=== PATIENT | female | born 1980 | race African-American/Black ===

== ENCOUNTER 2017-08-13 08:04 | Day surgery (SDC) | payer OTHER ==
[2017-08-10 10:43] VITALS: BMI 47.5
[2017-08-13 08:33] LABS: BASOPHIL 0.6 % (0-2.0); EOSINOPHIL 1.6 % (0-4.5); MCH 23.7 pg (25.7-33.7); MCHC 32.9 g/dl (32.0-36.0); MEAN CELL VOLUME 72.3 fl (80-96); MEAN PLT VOLUME 8.4 fl (7.5-11.1); NEUTROPHILS 58.4 % (42.8-82.8); PLATELET COUNT 313 K/MM3 (134-434); RDW 16.4 % (11.6-15.6); WHITE BLOOD COUNT 6.5 K/mm3 (4.0-10.0)
[2017-08-13 08:55] LABS: INR 1.12 (0.82-1.09); PROTHROMBIN TIME (PATIENT) 12.6 SEC (9.98-11.88)
[2017-08-13 09:15] LABS: ALBUMIN 3.3 g/dl (3.4-5.0); ALK PHOS 75 U/L (45-117); ANION GAP 6 (8-16); BILIRUBIN,TOTAL 0.3 mg/dL (0.2-1.0); CALCIUM 8.4 mg/dL (8.5-10.1); CO2 27 mmol/L (21-32); CREATININE 0.7 mg/dL (0.55-1.02); GLUCOSE,RANDOM 89 mg/dL (74-106); SGOT/AST 12 U/L (15-37); SGPT/ALT 15 U/L (12-78); TOT PROT 7.3 g/dl (6.4-8.2)
[2017-08-13] MEDS ORDERED: KETOROLAC TROMETHAMINE 15 MG/ML VIAL IVPUSH ONE ×2 (11:55→12:20)
[2017-08-13] MEDS ORDERED: HYDROmorphone HCL CARPU-JECT 1 MG/1 ML DISP.SYRIN IVPUSH ONE ×2 (12:20→12:40)
[2017-08-13] MEDS ORDERED: HYDROmorphone HCL CARPU-JECT 2 MG/1 ML DISP.SYRIN ONE (13:12)
[2017-08-13] MEDS ORDERED: HYDROmorphone *PCA* 10MG/50ML DISP.SYRIN PCA ONE ×2 (13:12→13:20)
[2017-08-13] MEDS ORDERED: HYDROmorphone HCL CARPU-JECT 2 MG/1 ML DISP.SYRIN IVPUSH ONE (13:15)
[2017-08-13] MEDS ORDERED: HYDROmorphone *PCA* 10MG/50ML DISP.SYRIN PCA SCH (13:45)
[2017-08-13] MEDS ORDERED: ONDANSETRON 4 MG/2 ML VIAL IVPUSH PRN (17:58)
[2017-08-13] MEDS ORDERED: SODIUM CHLORIDE 500 ML IV SCH (18:00)
--- NOTE | 2017-08-13 19:20 | HP ---
CHIEF COMPLAINT: Pain and nausea. PCP: Dr. Dumont, STATUS CONTROLLER HISTORY OF PRESENT ILLNESS: 36 year-old female with a PMH significant for morbid obesity, gastric sleeve surgery, menometorrhagia s/p hysteroscopy and D&C 03/2016, and s/p fibroid embolization earlier today by IR. 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 Recent Travel: No PAST MEDICAL HISTORY: Menometorrhagia Morbid obesity PAST SURGICAL HISTORY: Hysteroscopy and D&C 03/2016 Lap band 2009 Gastric sleeve 2012 Social History: Smoking: no Alcohol: on holidays Drugs: no Family History: Allergies Penicillins Allergy (Verified 08/10/17 10:44) "RASH,HIVES, CAN'T BREATH" pineapple Allergy (Verified 08/10/17 10:44) "TONGUE FEELS BURNT" HOME MEDICATIONS: Home Medications Medication Instructions Recorded Diphenhydramine [Benadryl -] 50 mg PO HS 08/10/17 Ferrous Sulfate 325 mg PO BID 08/10/17 Omeprazole 40 mg PO DAILY 08/10/17 Valacyclovir HCl [Valtrex] 1,000 mg PO BID 08/10/17 REVIEW OF SYSTEMS CONSTITUTIONAL: Present: feels weak, slightly lightheaded Absent: fever, chills, diaphoresis, generalized weakness, malaise, loss of appetite, weight change HEENT: Absent: rhinorrhea, nasal congestion, throat pain, throat swelling, difficulty swallowing, mouth swelling, ear pain, eye pain, visual changes CARDIOVASCULAR: Absent: chest pain, syncope, palpitations, irregular heart rate, lightheadedness , peripheral edema RESPIRATORY: Absent: cough, shortness of breath, dyspnea with exertion, orthopnea, wheezing, stridor, hemoptysis GASTROINTESTINAL: Absent: abdominal pain, abdominal distension, nausea, vomiting, diarrhea, constipation, melena, hematochezia GENITOURINARY: Absent: dysuria, frequency, urgency, hesitancy, hematuria, flank pain, genital pain MUSCULOSKELETAL: Absent: myalgia, arthralgia, joint swelling, back pain, neck pain SKIN: Absent: rash, itching, pallor HEMATOLOGIC/IMMUNOLOGIC: Absent: easy bleeding, easy bruising, lymphadenopathy, frequent infections ENDOCRINE: Absent: unexplained weight gain, unexplained weight loss, heat intolerance, cold intolerance NEUROLOGIC: Absent: headache, focal weakness or paresthesias, dizziness, unsteady gait, seizure, mental status changes, bladder or bowel incontinence PSYCHIATRIC: Absent: anxiety, depression, suicidal or homicidal ideation, hallucinations. STATUS CONTROLLER: Present: Heavy vaginal bleeding, cramping prior to procedure PHYSICAL EXAMINATION Vital Signs Temperature 97.8 F 08/13/17 18:00 Pulse Rate 58 L 08/13/17 18:00 Respiratory Rate 16 08/13/17 18:00 Blood Pressure 122/76 08/13/17 18:00 O2 Sat by Pulse Oximetry (%) 100 08/13/17 18:00 GENERAL: Awake, alert, and fully oriented, in mild distress secondary to nausea EYES: Pupils equal, round and reactive to light, extraocular movements intact, sclera anicteric, conjunctiva clear. No lid lag. EARS, NOSE, THROAT: Ears normal, nares patent, oropharynx clear without exudates. Moist mucous membranes. NECK: Normal range of motion, supple without lymphadenopathy, JVD, or masses. LUNGS: Breath sounds equal, clear to auscultation bilaterally. No wheezes, and no crackles. No accessory muscle use. HEART: Regular rate and rhythm, normal S1 and S2 without murmur, rub or gallop. ABDOMEN: Soft, nontender, not distended, hypoactive bowel sounds; right groin surgical dressing c/d/i, perineum padding without blood MUSCULOSKELETAL: Normal range of motion at all joints. No bony deformities or tenderness. No CVA tenderness. UPPER EXTREMITIES: 2+ pulses, warm, well-perfused. No cyanosis. No clubbing. No peripheral edema. LOWER EXTREMITIES: 2+ pulses, warm, well-perfused. No calf tenderness. No peripheral edema. NEUROLOGICAL: Cranial nerves II-XII intact. Normal speech. Gait not observed PSYCHIATRIC: Cooperative. Good eye contact. Appropriate mood and affect. Laboratory Results - last 24 hr 08/13/17 08/13/17 08/13/17 08:23 08:23 08:23 WBC 6.5 RBC 4.00 Hgb 9.5 L D Hct 28.9 L D MCV 72.3 L MCH 23.7 L MCHC 32.9 RDW 16.4 H D Plt Count 313 D MPV 8.4 D Neutrophils % 58.4 Lymphocytes % 30.4 Monocytes % 9.0 Eosinophils % 1.6 Basophils % 0.6 PT with INR 12.60 H INR 1.12 Sodium 140 Potassium 3.9 Chloride 107 Carbon Dioxide 27 Anion Gap 6 L BUN 6 L Creatinine 0.7 Creat Clearance w eGFR > 60 Random Glucose 89 Calcium 8.4 L Total Bilirubin 0.3 D AST 12 L D ALT 15 D Alkaline Phosphatase 75 Total Protein 7.3 Albumin 3.3 L Urine HCG, Qual 08/13/17 08:25 WBC RBC Hgb Hct MCV MCH MCHC RDW Plt Count MPV Neutrophils % Lymphocytes % Monocytes % Eosinophils % Basophils % PT with INR INR Sodium Potassium Chloride Carbon Dioxide Anion Gap BUN Creatinine Creat Clearance w eGFR Random Glucose Calcium Total Bilirubin AST ALT Alkaline Phosphatase Total Protein Albumin Urine HCG, Qual Negative ASSESSMENT/PLAN: 36 year-old female with a PMH significant for morbid obesity, gastric sleeve surgery, menometorrhagia s/p hysteroscopy and D&C 03/2016, and s/p fibroid embolization earlier today by IR. 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 Presently with nausea and mild cramping. Uterine fibroids s/p embolization --hemodynamically stable but feeling weak; repeat vitals, stat cbc, increase IV fluids --continue AIR TRAFFIC INSTRUCTOR pump for pain management overnight; Zofran PRN --monitor for signs of bleeding --repeat cbc, lytes in am --good UOP ~75 cc's per hour, clear yellow urine; remove vargas when patient ambulatory DVT prophylaxis: oob, early ambulation Visit type - Emergency Visit Emergency Visit: No - New Patient This patient is new to me today: Yes Date on this admission: 08/13/17 - Critical Care Critical Care patient: No
[2017-08-13] MEDS: SODIUM CHLORIDE 500 ML IV SCH (20:22)
[2017-08-13 20:58] LABS: BASOPHIL 0.4 % (0-2.0); MCH 24.1 pg (25.7-33.7); MCHC 32.9 g/dl (32.0-36.0); MEAN CELL VOLUME 73.4 fl (80-96); MEAN PLT VOLUME 8.8 fl (7.5-11.1); PLATELET COUNT 303 K/MM3 (134-434); RDW 17.2 % (11.6-15.6); WHITE BLOOD COUNT 6.5 K/mm3 (4.0-10.0)
[2017-08-14] MEDS: SODIUM CHLORIDE 500 ML IV SCH (04:45)
[2017-08-14 06:44] LABS: BASOPHIL 0.2 % (0-2.0); EOSINOPHIL 0.4 % (0-4.5); MCH 23.9 pg (25.7-33.7); MCHC 32.3 g/dl (32.0-36.0); MEAN PLT VOLUME 8.9 fl (7.5-11.1); NEUTROPHILS 75.6 % (42.8-82.8); PLATELET COUNT 275 K/MM3 (134-434); RDW 16.8 % (11.6-15.6); WHITE BLOOD COUNT 8.2 K/mm3 (4.0-10.0)
[2017-08-14 07:07] LABS: ALBUMIN 2.8 g/dl (3.4-5.0); ANION GAP 11 (8-16); CO2 24 mmol/L (21-32); CREATININE 0.5 mg/dL (0.55-1.02); GLUCOSE,RANDOM 106 mg/dL (74-106); MAGNESIUM 2.2 mg/dL (1.8-2.4); SGOT/AST 14 U/L (15-37); SGPT/ALT 14 U/L (12-78)
[2017-08-14 07:08] LABS: ALK PHOS 66 U/L (45-117); BILIRUBIN,TOTAL 0.4 mg/dL (0.2-1.0); TOT PROT 6.7 g/dl (6.4-8.2)
[2017-08-14] MEDS ORDERED: oxyCODONE HCL 5 MG TABLET PO ONE (11:30)
--- NOTE | 2017-08-14 12:04 | DS ---
Physical Exam: SUBJECTIVE: Patient seen and examined at bedside. Didn't sleep well, complaining of pain. Does not feel like she can get out of bed. OBJECTIVE: Vital Signs Period Temp Pulse Resp BP Sys/Amaral Pulse Ox Last 24 Hr 97.7 F-98.6 F 54-76 16-20 110-144/56-96 98-100 PHYSICAL EXAM GENERAL: The patient is awake, alert, and fully oriented, in no acute distress. ABDOMEN: Soft, nontender, not distended, hypoactive bowel sounds; right groin surgical dressing c/d/i, peripad no spotting MUSCULOSKELETAL: Normal range of motion at all joints. No bony deformities or tenderness. No CVA tenderness. UPPER EXTREMITIES: 2+ pulses, warm, well-perfused. No cyanosis. No clubbing. No peripheral edema. LOWER EXTREMITIES: 2+ pulses, warm, well-perfused. No calf tenderness. No peripheral edema. NEUROLOGICAL: Cranial nerves II-XII intact. Normal speech. Gait not observed LABS Laboratory Results - last 24 hr 08/13/17 08/14/17 08/14/17 19:30 05:40 05:40 WBC 6.5 8.2 RBC 3.81 3.73 Hgb 9.2 L 8.9 L Hct 28.0 L 27.6 L MCV 73.4 L 74.0 L MCH 24.1 L 23.9 L MCHC 32.9 32.3 RDW 17.2 H 16.8 H Plt Count 303 275 MPV 8.8 8.9 Neutrophils % 80.0 D 75.6 Lymphocytes % 12.8 D 15.1 Monocytes % 6.8 8.7 Eosinophils % 0.0 D 0.4 D Basophils % 0.4 0.2 Sodium 142 Potassium 4.2 Chloride 107 Carbon Dioxide 24 Anion Gap 11 BUN 5 L Creatinine 0.5 L D Creat Clearance w eGFR > 60 Random Glucose 106 Calcium 8.0 L Magnesium 2.2 Total Bilirubin 0.4 D AST 14 L ALT 14 Alkaline Phosphatase 66 Total Protein 6.7 Albumin 2.8 L HOSPITAL COURSE: Date of Admission:08/13/17 Date of Discharge: 08/14/17 Minutes to complete discharge: 35 Discharge Summary Reason For Visit: UTERINE FIBROIDS Condition: Improved - Instructions Diet, Activity, Other Instructions: You should follow up with Dr. Dumont within two weeks of your discharge, or sooner if you develop bleeding, worsening pain, fever, nausea, or vomiting. Return to the emergency room for any new or worsening symptoms. Referrals: Tanja Dumont MD [Staff Physician] - 2 Weeks Disposition: HOME - Home Medications Comprehensive Discharge Medication List: Ambulatory Orders Diphenhydramine [Benadryl Capsule -] 50 mg PO HS 08/10/17 Ferrous Sulfate 325 mg PO BID 08/10/17 Omeprazole 40 mg PO DAILY 08/10/17 Valacyclovir HCl [Valtrex] 1,000 mg PO BID 08/10/17
[2017-08-14] MEDS: ACETAMINOPHEN 325 MG TABLET (FP) PO PRN (12:23)
[2017-08-14] MEDS: valACYclovir HCL 1000 MG TABLET PO SCH ×2 (13:27→22:03)
--- NOTE | 2017-08-14 15:31 | PN ---
Physical Exam: SUBJECTIVE: Patient seen and examined twice today. This morning complained didn' t sleep well, complaining of lower abdominal cramping pain, and nausea. EXTENSION AGENT pump was stopped. Patient complained she needed percocet for pain as Tylenol would not be enough and she was unable to get out of bed or ambulate due to pain. Oxycodone 10mg x 1 dose was given. Patient did get up and ambulate to bathroom. However, again became nauseous and vomited. Patient seen again this afternoon. Re-established NPO status, IV Motrin and IV Zofran ordered both PRN. [place]ano dc'd and patient is voiding on her own. OBJECTIVE: Vital Signs Period Temp Pulse Resp BP Sys/Amaral Pulse Ox Last 24 Hr 97.7 F-98.6 F 54-65 16-18 110-144/56-83 98-100 GENERAL: The patient is awake, alert, and fully oriented, in no acute distress. ABDOMEN: Soft, nontender, not distended, hypoactive bowel sounds; right groin surgical dressing c/d/i, peripad no spotting MUSCULOSKELETAL: Normal range of motion at all joints. No bony deformities or tenderness. No CVA tenderness. UPPER EXTREMITIES: 2+ pulses, warm, well-perfused. No cyanosis. No clubbing. No peripheral edema. LOWER EXTREMITIES: 2+ pulses, warm, well-perfused. No calf tenderness. No peripheral edema. NEUROLOGICAL: Cranial nerves II-XII intact. Normal speech. Gait not observed. Laboratory Results - last 24 hr 08/13/17 08/14/17 08/14/17 19:30 05:40 05:40 WBC 6.5 8.2 RBC 3.81 3.73 Hgb 9.2 L 8.9 L Hct 28.0 L 27.6 L MCV 73.4 L 74.0 L MCH 24.1 L 23.9 L MCHC 32.9 32.3 RDW 17.2 H 16.8 H Plt Count 303 275 MPV 8.8 8.9 Neutrophils % 80.0 D 75.6 Lymphocytes % 12.8 D 15.1 Monocytes % 6.8 8.7 Eosinophils % 0.0 D 0.4 D Basophils % 0.4 0.2 Sodium 142 Potassium 4.2 Chloride 107 Carbon Dioxide 24 Anion Gap 11 BUN 5 L Creatinine 0.5 L D Creat Clearance w eGFR > 60 Random Glucose 106 Calcium 8.0 L Magnesium 2.2 Total Bilirubin 0.4 D AST 14 L ALT 14 Alkaline Phosphatase 66 Total Protein 6.7 Albumin 2.8 L Active Medications Generic Name Dose Route Start Last Admin Trade Name Freq PRN Reason Stop Dose Admin Acetaminophen 650 mg 08/14/17 10:00 08/14/17 12:23 Tylenol - PO 650 mg Q6H PRN Administration FEVER OR PAIN Dextrose/Sodium Chloride 1,000 mls @ 100 mls/hr 08/14/17 15:30 D5-1/2ns - IV ASDIR ALPA Valacyclovir HCl 1,000 mg 08/14/17 12:30 08/14/17 13:27 Valtrex - PO 1,000 mg BID ALPA Administration ASSESSMENT/PLAN: 36 year-old female with a PMH significant for morbid obesity, lap band surgery, gastric sleeve surgery, menometorrhagia s/p hysteroscopy and D&C 03/2016, and s/ p fibroid embolization on 08/13/17. Kept overnight for pain management and observation. Uterine fibroids s/p embolization 08/13/17 --hemodynamically stable, H/H stable --surgical site dressing c/d/i --hold opioids due to n/v; Tylenol, IV Motrin, and Zofran PRN --made NPO again and restarted IV fluids this afternoon --sam was dc'd, voiding freely --suppository PRN for constipation Herpes simplex infection, chronic --continue valocyclivir Iron deficiency anemia --hold ferrous sulfate as may contribute to nausea F/E/N Fluids: D51/2NS @ 100mL/hr Electrolytes: replete as indicated Nutrition: NPO DVT prophylaxis: lovenox 50mg (obesity dosing); oob, ambulation Dispo: continues to require inpatient care. Full Code. Visit type - Emergency Visit Emergency Visit: Yes Care time: The patient presented to the Emergency Department on the above date and was hospitalized for further evaluation of their emergent condition. - New Patient This patient is new to me today: No - Critical Care Critical Care patient: No
[2017-08-14] MEDS ORDERED: IBUPROFEN 800 MG/8 ML IJ IVPB PRN (16:02)
[2017-08-14] MEDS ORDERED: BISACODYL 10 MG SUPP.RECT PR PRN (16:02)
[2017-08-14] MEDS ORDERED: ONDANSETRON 4 MG/2 ML VIAL IVPUSH PRN (16:03)
[2017-08-14] MEDS: ENOXAPARIN NA (PORCINE) 40 MG/0.4 ML DISP.SYRIN SQ SCH (16:28)
[2017-08-14] MEDS: DEXTROSE 5%-0.45% SALINE 1,000 ML IV SCH (16:31)
[2017-08-14] MEDS ORDERED: FERROUS SO4 325 MG TABLET (FP) PO SCH (17:30)
[2017-08-14] MEDS ORDERED: PANTOPRAZOLE SODIUM 40 MG VIAL IVPUSH ONE (17:56)
[2017-08-14] MEDS ORDERED: KETOROLAC TROMETHAMINE 30 MG/1 ML VIAL IVPUSH ONE (19:53)
[2017-08-14] MEDS ORDERED: PT OWN MED DRAWER 7, Y5N ONE (21:34)
[2017-08-14] MEDS ORDERED: PANTOPRAZOLE SODIUM 40 MG VIAL IVPUSH SCH (22:00)
[2017-08-15] MEDS: DEXTROSE 5%-0.45% SALINE 1,000 ML IV SCH (04:15)
[2017-08-15] MEDS: ACETAMINOPHEN 325 MG TABLET (FP) PO PRN (04:17)
[2017-08-15] MEDS ORDERED: ACETAMINOPHEN WITH CODEINE 300MG/30MG TABLET PO ONE ×2 (04:22→08:57)
[2017-08-15 07:40] LABS: BASOPHIL 0.3 % (0-2.0); EOSINOPHIL 2.4 % (0-4.5); MCH 23.8 pg (25.7-33.7); MCHC 32.6 g/dl (32.0-36.0); MEAN CELL VOLUME 73.2 fl (80-96); NEUTROPHILS 60.3 % (42.8-82.8); PLATELET COUNT 253 K/MM3 (134-434); RDW 17.2 % (11.6-15.6); WHITE BLOOD COUNT 7.4 K/mm3 (4.0-10.0)
[2017-08-15 08:05] LABS: ALBUMIN 2.8 g/dl (3.4-5.0); ANION GAP 9 (8-16); BILIRUBIN,TOTAL 0.5 mg/dL (0.2-1.0); CALCIUM 7.8 mg/dL (8.5-10.1); CO2 27 mmol/L (21-32); CREATININE 0.6 mg/dL (0.55-1.02); GLUCOSE,RANDOM 98 mg/dL (74-106); MAGNESIUM 1.9 mg/dL (1.8-2.4); SGOT/AST 14 U/L (15-37); SGPT/ALT 12 U/L (12-78)
[2017-08-15 08:08] LABS: ALK PHOS 59 U/L (45-117); TOT PROT 6.1 g/dl (6.4-8.2)
[2017-08-15] MEDS ORDERED: PANTOPRAZOLE 40 MG TABLET (FP) PO ONE (08:32)
[2017-08-15] MEDS ORDERED: PT OWN MED DRAWER 7, Y5N ONE (09:06)
[2017-08-15] MEDS: ENOXAPARIN NA (PORCINE) 40 MG/0.4 ML DISP.SYRIN SQ SCH (09:08)
[2017-08-15] MEDS: valACYclovir HCL 1000 MG TABLET PO SCH (09:10)
--- NOTE | 2017-08-15 09:15 | DS ---
Physical Examination Vital Signs: Vital Signs Temperature 99.2 F 08/15/17 06:04 Pulse Rate 77 08/15/17 06:04 Respiratory Rate 20 08/15/17 06:04 Blood Pressure 101/67 08/15/17 06:04 O2 Sat by Pulse Oximetry (%) 98 08/14/17 21:00 Labs: CBC, BMP 08/15/17 06:25 08/15/17 06:25 Discharge Summary Reason For Visit: UTERINE FIBROIDS Hospital Course: Tolerating food well. States symptoms improved when she took her own omeprazole yesterday. Condition: Improved - Instructions Diet, Activity, Other Instructions: You should follow up with Dr. Dumont within two weeks of your discharge, or sooner if you develop bleeding, worsening pain, fever, nausea, or vomiting. Return to the emergency room for any new or worsening symptoms. Referrals: Tanja Dumont MD [Staff Physician] - 2 Weeks Disposition: HOME - Home Medications Comprehensive Discharge Medication List: Ambulatory Orders Diphenhydramine [Benadryl Capsule -] 50 mg PO HS 08/10/17 Ferrous Sulfate 325 mg PO BID 08/10/17 Omeprazole 40 mg PO DAILY 08/10/17 Valacyclovir HCl [Valtrex] 1,000 mg PO BID 08/10/17 Acetaminophen W/ Codeine #3 [Tylenol # 3 -] 1 tab PO Q6H PRN #12 tablet MDD 4 tab 08/15/17 Ibuprofen [Motrin -] 600 mg PO TID PRN #1 tablet 08/15/17
[2017-08-15 09:46] VITALS: TEMP 98.8
[2017-08-15 11:28] VITALS: BP 124/60; PULSE 84
== END 2017-08-15 12:40 | disposition home or self-care (01) ==
LOC: JASUSAT 08:04 → SUATTDRO 08:04 → J6S 17:25 → JASUSAT 08-15 12:40
PROVIDERS: ATTEND Registered Nurse
PROC: 04LF3DU Occlusion of Left Uterine Artery with Intraluminal Device, Percutaneous Approach (ICD-10-PCS; principal; 2017-08-13 10:00)
DX: D25.9 Leiomyoma of uterus, unspecified (principal); N93.8 Other specified abnormal uterine and vaginal bleeding
CPT/HCPCS: 36415; 37243; 77001-TC; 80053; 83735; 84703; 85025; 85610; 94760; C1760; C1769; C1887

== ENCOUNTER 2018-04-10 05:09 | Day surgery (SDC) | payer OTHER ==
[2018-04-09 13:26] VITALS: BMI 48.4
[2018-04-10] MEDS ORDERED: MIDAZOLAM HCL 2 MG/2 ML SINGLE DOSE VIAL ONE (11:26)
[2018-04-10] MEDS ORDERED: PROPOFOL 20 ML ONE ×2 (11:26)
[2018-04-10] MEDS ORDERED: ACETAMINOPHEN 325 MG TABLET (FP) PO PRN (11:39)
--- NOTE | 2018-04-10 11:39 | HP ---
Admitting History and Physical - Admission Chief Complaint: Abnormal bleeding, fibroids, pelvic pain History Source: Patient, Medical Record - Past Medical History ...LMP: 03/17/18 Heme/Onc: Yes: Anemia - Past Surgical History Past Surgical History: Yes: Bariatric Surgery - Smoking History Smoking history: Never smoked Have you smoked in the past 12 months: No - Alcohol/Substance Use Hx Alcohol Use: No - Social History ADL: Independent Occupation: [employer] History of Recent Travel: No Home Medications - Allergies Allergies/Adverse Reactions: Allergies Allergy/AdvReac Type Severity Reaction Status Date / Time Penicillins Allergy "RASH,HIVES, Verified 04/10/18 10:30 CAN'T BREATH" pineapple Allergy "TONGUE Verified 04/10/18 10:30 FEELS BURNT" - Home Medications Home Medications: Ambulatory Orders Diphenhydramine [Benadryl Capsule -] 50 mg PO HS 08/10/17 Ferrous Sulfate 325 mg PO DAILY 08/10/17 Omeprazole 40 mg PO DAILY 08/10/17 Valacyclovir HCl [Valtrex] 1,000 mg PO BID 08/10/17 Ibuprofen [Motrin -] 600 mg PO TID PRN #1 tablet 08/15/17 Review of Systems - Review of Systems Constitutional: reports: No Symptoms Eyes: reports: No Symptoms HENT: reports: No Symptoms Neck: reports: No Symptoms Cardiovascular: reports: No Symptoms Respiratory: reports: No Symptoms Gastrointestinal: reports: Abdominal Pain (with menses). denies: Constipation, Diarrhea Genitourinary: reports: No Symptoms, Vaginal Bleeding (heavy with menses) Breasts: reports: No Symptoms Reported Integumentary: reports: No Symptoms Neurological: reports: No Symptoms Endocrine: reports: No Symptoms Hematology/Lymphatic: reports: No Symptoms Psychiatric: reports: No Symptoms Physical Examination Vital Signs: Vital Signs Temperature 98.2 F 04/10/18 10:27 Pulse Rate 73 04/10/18 10:27 Respiratory Rate 20 04/10/18 10:27 Blood Pressure 137/86 04/10/18 10:27 O2 Sat by Pulse Oximetry (%) 97 04/10/18 10:26 Constitutional: Yes: Well Nourished, No Distress, Calm Eyes: Yes: Conjunctiva Clear, EOM Intact HENT: Yes: WNL Respiratory: Yes: WNL Gastrointestinal: Yes: WNL Renal/: Yes: Other (fibroids). No: Vaginal Bleeding Neurological: Yes: Alert, Oriented Psychiatric: Yes: Alert, Oriented Problem List - Problems (1) Leiomyoma Code(s): D21.9 - BENIGN NEOPLASM OF CONNECTIVE AND OTHER SOFT TISSUE, UNSP (2) Menorrhagia Code(s): N92.0 - EXCESSIVE AND FREQUENT MENSTRUATION WITH REGULAR CYCLE Assessment/Plan 37 y/o with fibroid uterus, menorrhagia, submucosal leiomyoma noted on hysterosonography in office AFVSS Plan for hysteroscopic myomectomy, suction D&C risks of procedure including bleeding, infection, uterine perforation etc discussed, pt aware and questions answered consents signed Anethesia aware
[2018-04-10] MEDS ORDERED: LACTATED RINGERS SOLUTION 1,000 ML IV SCH ×2 (11:45→13:00)
[2018-04-10] MEDS ORDERED: ROCURONIUM BROMIDE 50 MG/5 ML VIAL ONE (12:03)
[2018-04-10] MEDS ORDERED: DEXAMETHASONE SOD PHOSPHATE 4 MG/1 ML VIAL ONE (12:49)
[2018-04-10] MEDS ORDERED: ONDANSETRON 4 MG/2 ML VIAL IVPUSH PRN (12:52)
[2018-04-10] MEDS ORDERED: oxyCODONE HCL 5 MG TABLET PO PRN (12:52)
[2018-04-10] MEDS ORDERED: KETOROLAC TROMETHAMINE 30 MG/1 ML VIAL ONE (12:53)
--- NOTE | 2018-04-10 13:10 | OP ---
Operative Note - Note: Operative Date: 04/10/18 Pre-Operative Diagnosis: submucosal fibroid Operation: hysteroscopic myomectomy, suction D&C Findings: approx 2-3cm fundal submucosal fibroid on left uterine cornual area Post-Operative Diagnosis: Same as Pre-op Surgeon: Radha Sanchez Anesthesiologist/CLINICAL TRIALS SYSTEMS ADMINISTRATOR: Kamaljit Barrera Anesthesia: General Specimens Removed: portions of leiomyoma, endometrial curettings Estimated Blood Loss (mls): 5 (50cc fluid defecit) Operative Report Dictated: Yes
--- NOTE | 2018-04-10 13:41 | OP ---
DATE OF OPERATION: 04/10/2018 PREOPERATIVE DIAGNOSIS: Submucosal fibroid. POSTOPERATIVE DIAGNOSIS: Submucosal fibroid. PROCEDURE: Hysteroscopic myomectomy, suction dilation and curettage. SURGEON: Radha Sanchez DO ANESTHESIA: General by Kamaljit Barrera MD COMPLICATIONS: None. ESTIMATED BLOOD LOSS: 5 mL. FLUID DEFICIT: 50 mL. SPECIMENS: Portions of submucosal leiomyoma and endometrial curettings. COUNTS: Sponge and instrument counts correct at the end of the case. DISPOSITION: Stable to PACU. BRIEF HISTORY AND PROCEDURE: Patient is a 37-year-old female with a known fibroid uterus who had been to the office complaining of heavy painful periods. Upon ultrasonography in the office, a submucosal fibroid was noted, at which point the patient was scheduled for a hysteroscopic myomectomy. The consent was signed in the office. The patient was then admitted to [facility] on April 10, 2018. Consents were re-signed and questions were answered. The patient was taken back to the operating room, given general anesthesia and placed in the dorsal lithotomy position. A hard timeout was performed. A diagnostic hysteroscope was advanced into the uterus, and a submucosal leiomyoma in left fundal cornua region of the uterus was appreciated. Next, the operative hysteroscope was inserted and advanced to the fundus, and the myoma was resected with a resectoscope in several passes until the entire fibroid was removed. Suction D and C was performed to get a uterine sample and to remove the fibroid pieces from the uterus. All specimens were sent to Pathology. One final look with the hysteroscope revealed no uterine perforation or intrauterine trauma. Fluid deficit was 50 mL. All instruments were removed from the vagina. Count was correct. Patient tolerated the procedure well, was recovering in stable condition in the PACU at the time of this dictation. RADHA SANCHEZ DO /[id number] [facility]
[2018-04-10 15:01] VITALS: BP 112/64; PULSE 72; TEMP 98.5
--- NOTE | 2018-04-11 13:47 | PATH ---
Surgical Pathology Report Patient Name: SARAH SMALL [facility]. Rec. #: [id number] /Age/Gender: 1980 (Age: 37) / F Account: [id number] Location: [facility] Taken: 04/10/2018 Received: 04/10/2018 Reported: 04/11/2018 Physicians: Radha Sanchez M.D. Specimen(s) Received ENDOMETRIAL CURETTINGS AND FIBROIDS Clinical History Fibroids Final Diagnosis FIBROIDS AND ENDOMETRIAL CURETTINGS, HYSTEROSCOPIC MYOMECTOMY, DILATION AND CURETTAGE: FRAGMENTS OF SECRETORY ENDOMETRIUM AND PARTIALLY HYALINIZED LEIOMYOMA. Electronically Signed Mary Wayne M.D. Gross Description Received in formalin labeled "fibroids and endometrial curettings," is a 2 g, 3.0 x 2.7 x 0.4 cm aggregate of sheffield-red soft tissue fragments admixed with sheffield, rubbery portions of tissue, consistent with morcellated fibroids. The specimen is entirely submitted in 2 cassettes /04/10/2018 saudi/04/10/2018
== END 2018-04-10 15:05 | disposition home or self-care (01) ==
LOC: JASU-SURG 05:09
PROVIDERS: ATTEND Obstetrics & Gynecology
PROC: 0UDB7ZZ Extraction of Endometrium, Via Natural or Artificial Opening (ICD-10-PCS; 2018-04-10)
PROC: 0UJD8ZZ Inspection of Uterus and Cervix, Via Natural or Artificial Opening Endoscopic (ICD-10-PCS; 2018-04-10)
PROC: 0UB98ZZ Excision of Uterus, Via Natural or Artificial Opening Endoscopic (ICD-10-PCS; principal; 2018-04-10 11:30)
DX: D25.0 Submucous leiomyoma of uterus (principal)
CPT/HCPCS: 88305-TC; 94760